=== PATIENT | male | born 1940 | race Two or more races ===

== ENCOUNTER 2019-12-07 12:05 | Inpatient (IN) | payer OTHER ==
[~2019-12-07] VITALS: Ht 185.4 cm; Wt 72.6 kg
[2019-12-07] MEDS ORDERED: ONDANSETRON HCL 4 MG/2 ML VIAL ONE (12:29)
[2019-12-07] MEDS ORDERED: MORPHINE SULFATE 4 MG/ML SYR/VIAL ONE (12:29)
[2019-12-07] MEDS ORDERED: cefTRIAXone 1GM/50ML D5W 50 ML IV ONE (12:30)
[2019-12-07] MEDS ORDERED: SODIUM CHLORIDE 0.9% 1,000 ML IV ONE ×3 (12:30→16:45)
[2019-12-07] MEDS ORDERED: MORPHINE SULFATE 4 MG/ML SYR/VIAL IV ONE (12:45)
[2019-12-07] MEDS ORDERED: ONDANSETRON HCL 4 MG/2 ML VIAL IV ONE (12:45)
[2019-12-07 13:27] LABS: Basophils # (auto) 0 10 ^3/uL (0-0.2); Basophils % (auto) 0.3 % (0.0-2.0); Eosinophils # (auto) 0 10 ^3/uL (0-0.8); Lymphocytes # (auto) 0.4 10 ^3/uL (0.4-5.4); Monocytes # (auto) 0.4 10 ^3/uL (0-1.3)
[2019-12-07 13:28] LABS: Hematocrit 35.4 % (41.0-53.0); Hemoglobin 12.3 g/dL (13.5-17.5); Lymphocytes % (auto) 4.1 % (10.0-50.0); Mean Corpuscular Hemoglobin 34.7 pg (28.0-32.0); Mean Corpuscular Hgb Conc. 34.6 g/dL (32.0-36.0); Mean Corpuscular Volume 100.4 fL (80.0-100.0); Monocytes % (auto) 4.7 % (0.0-12.0); Neutrophils # (auto) 8.7 10 ^3/uL (1.6-8.6); Neutrophils % (auto) 90.9 % (37.0-80.0); Platelet Count (auto) 289 10^3/uL (140-450); Red Blood Cells 3.53 10^6/uL (4.5-5.90); Red Cell Distribution Width 15.3 % (11.8-14.3); White Blood Cell 9.6 10^3/uL (4.4-10.8)
[2019-12-07 13:42] LABS: INR 1.15 (0.9-1.15); Partial Thromboplastin Time 32.6 sec (23.64-32.05)
[2019-12-07 13:45] LABS: Alanine Aminotransferase 23 U/L (16-61); Albumin 2.5 g/dL (3.4-5.0); Anion Gap 9 (5-15); Aspartate Aminotransferase 43 U/L (15-37); BUN/Creatinine Ratio 32.6; Blood Urea Nitrogen 42 mg/dL (7-18); Calcium 9.3 mg/dL (8.5-10.1); Carbon Dioxide 23 mmol/L (21-32); Chloride 111 mmol/L (98-107); GFR African American 70 mL/min; GFR Non-African American 58 mL/min; Glucose 110 mg/dL (74-106); Potassium 3.8 mmol/L (3.5-5.1); Sodium 143 mmol/L (136-145)
[2019-12-07 13:50] LABS: Alkaline Phosphatase 78 U/L (45-117); Bilirubin, Total 0.6 mg/dL (0.2-1.0); Total Protein 8.5 g/dL (6.4-8.2)
[2019-12-07] MEDS ORDERED: LIDOCAINE 2% JELLY 11ml (GLYDO) ONE (14:15)
[2019-12-07] MEDS ORDERED: LIDOCAINE 2% JELLY 11ml (GLYDO) UR ONE (15:00)
[2019-12-07] MEDS ORDERED: ACETAMINOPHEN 500 MG TAB PO PRN (16:45)
[2019-12-07] MEDS ORDERED: ONDANSETRON HCL 4 MG/2 ML VIAL IV PRN (16:45)
[2019-12-07] MEDS ORDERED: NITROGLYCERIN 0.4 MG SL TAB SL PRN (16:45)
[2019-12-07] MEDS ORDERED: MORPHINE SULF INJ 2 MG/ML SYRINGE 1ML IV PRN ×2 (16:45)
[2019-12-07] MEDS ORDERED: MEPERIDINE HCL (25 MG/ML) 1ML VIAL IV PRN (17:15)
[2019-12-07] MEDS: AZITHROMYCIN 500MG/ 250ML 250 ML IV SCH (17:23)
[2019-12-07] MEDS ORDERED: SODIUM CHLORIDE 0.9% 500 ML IV ONE (17:45)
[2019-12-07] MEDS ORDERED: ACETAMINOPHEN 650 MG RECT SUPP PR PRN (17:45)
[2019-12-07] MEDS ORDERED: NOREPINEPHRINE 8 MG/250ML KIT 250 ML IV SCH (20:43)
[2019-12-08] VITALS (16 sets, daily range): BP systolic 79–112; BP diastolic 52–76
[2019-12-08 05:24] LABS: Basophils # (auto) 0.2 10 ^3/uL (0-0.2); Basophils % (auto) 0.9 % (0.0-2.0); Eosinophils # (auto) 0 10 ^3/uL (0-0.8); Hematocrit 37.6 % (41.0-53.0); Hemoglobin 12.3 g/dL (13.5-17.5); Lymphocytes # (auto) 0.3 10 ^3/uL (0.4-5.4); Lymphocytes % (auto) 1.7 % (10.0-50.0); Mean Corpuscular Hemoglobin 32.5 pg (28.0-32.0); Mean Corpuscular Hgb Conc. 32.6 g/dL (32.0-36.0); Mean Corpuscular Volume 99.9 fL (80.0-100.0); Monocytes # (auto) 0.7 10 ^3/uL (0-1.3); Monocytes % (auto) 4.3 % (0.0-12.0); Neutrophils # (auto) 15.5 10 ^3/uL (1.6-8.6); Neutrophils % (auto) 93.1 % (37.0-80.0); Nucleated Red Blood Cells % 0.1 %; Platelet Count (auto) 314 10^3/uL (140-450); Red Blood Cells 3.77 10^6/uL (4.5-5.90); Red Cell Distribution Width 15.6 % (11.8-14.3); White Blood Cell 16.6 10^3/uL (4.4-10.8)
--- NOTE | 2019-12-08 05:30 | NUR ---
Admit to [facility] Ladmitted to [facility] via gurney on bowling floor desk clerk, and portable 02. Patient transfered to bed, connected to unit monitoring and oxygen, [facility]. Patient oriented to Quang Roldan, primary RN, unit, room, bed, and unit policies regarding patient care and visiting hours. All questions and concerns addressed, patient verbalized understanding.Bed locked for safety. Complete physical assessment under interventions. NOTE:
[2019-12-08 05:51] LABS: BUN/Creatinine Ratio 28.9; Calcium 8.8 mg/dL (8.5-10.1); Potassium 4.4 mmol/L (3.5-5.1)
--- NOTE | 2019-12-08 06:00 | NUR ---
Called ER- change admission order spoke with ER requesting to place [facility] order per charge nurse.
--- NOTE | 2019-12-08 07:15 | NUR ---
Endorsed care to day nurse
--- NOTE | 2019-12-08 08:00 | NUR ---
Opening Shift Note Assumed care of patient, patient sleeping, woke up by calling and touching, not follow direction, mumbling, stated that cold BT 97.5, blanket provided. No S/S of distress/SOB or pain noted. Will continue to monitor for changes Q1hr and PRN. Patient on Levophed at 7mcg/min.
--- NOTE | 2019-12-08 08:30 | NUR ---
Tried to retained leon's catheter, using No 14F, couldn't pass it through, patient restless, then stop trying.
--- NOTE | 2019-12-08 08:45 | NUR ---
Dressing changed at IV right hand.
[2019-12-08] MEDS ORDERED: cefTRIAXone 1GM/50ML D5W 50 ML IV SCH (09:00)
[2019-12-08] MEDS: AZITHROMYCIN 500MG/ 250ML 250 ML IV SCH (09:39)
[2019-12-08] MEDS ORDERED: PANTOPRAZOLE 40 MG/10 ML VIAL INJ IV SCH (10:00)
--- NOTE | 2019-12-08 10:00 | NUR ---
CXR at the bedside, received a call from wound care nurse. Patient coughing and lung sound more crackle at left lung, o2 saturation 92% with O2 NC 5 LPM, changed to simple mask at 10 LPM at this time. Will continue to monitor and care.
--- NOTE | 2019-12-08 10:56 | NUR ---
Called and left the message to Dr. Daysi Bennett regarding patient more SOB RR 40-45/min, O2 saturation 92% with O2 NC 5 LPM, needed to prince to simple mask, O2 saturation 94%, still restless, not follow direction, informed MD that cannot insert leon's catheter as well. Waiting MD to call back.
--- NOTE | 2019-12-08 11:06 | NUR ---
RT at the bedside, changing to Oxymizer, called and left the message, possible patient might need intubation and also families at the lobby mentioned that doctor okay for them to come up. Waiting MD to call back.
--- NOTE | 2019-12-08 11:17 | NUR ---
Received a call from his (MAYANK), Wendi fierro for families to see patient and for code status.
--- NOTE | 2019-12-08 11:30 | NUR ---
Received a call back from Dr. Bennett, informed information and MD made aware about lab and patient's condition, MD spoke to his on the phone.
--- NOTE | 2019-12-08 11:35 | NUR ---
His signed DNR (comfort measure only)
--- NOTE | 2019-12-08 11:45 | NUR ---
Asystole, Dr. Bennett made aware. His and sons at the bedside.
--- NOTE | 2019-12-08 12:00 | NUR ---
Laquita () took patient's ring back, no other belonging noted.
--- NOTE | 2019-12-08 12:20 | NUR ---
Onel ASIF at the bedside for pronounce .
--- NOTE | 2019-12-08 12:39 | NUR ---
Called for Metallurgical Inspector at [phone]. Provided information, waiting a call back.
--- NOTE | 2019-12-08 12:48 | NUR ---
Called and spoke to Florentin from [employer] ([phone]), , patient is not candidate.
--- NOTE | 2019-12-08 14:47 | NUR ---
Received a call from Gia from [employer], will called [employer] for case number and body can be released by founder president and ceo (per Gia Farias), CN (Ramila) made aware and body can transfer to [facility].
--- NOTE | 2019-12-08 15:28 | NUR ---
Arik was taken to [facility]. Called [facility] at [phone]. Addendum: 12/08/19 at 1537 by YURY FONG RN RN Body
--- NOTE | 2019-12-08 15:37 | NUR ---
Director Manufacturing Engineering's case number [id number].
--- NOTE | 2019-12-08 19:47 | NUR ---
RICO EVANS FROM [employer] CALLED AND GAVE ME A CASE # [id number] AND IS A [employer] CASE, SERVER PROGRAMMER DEEPAK AGUAYO RN WAS NOTIFIED.
== END 2019-12-08 11:45 | disposition expired | DRG 535 ==
LOC: EDBD 12:05 → ER 12:05 → TELE 12:06 → DOU IN ICU 12-08 05:30
PROVIDERS: ADMIT Nurse Practitioner Acute Care; ATTEND Internal Medicine
DX: S72.012A Unspecified intracapsular fracture of left femur, initial encounter for closed fracture (principal); J96.01 Acute respiratory failure with hypoxia; J18.9 Pneumonia, unspecified organism; E44.0 Moderate protein-calorie malnutrition; C34.91 Malignant neoplasm of unspecified part of right bronchus or lung; E87.0 Hyperosmolality and hypernatremia; N17.9 Acute kidney failure, unspecified; J44.0 Chronic obstructive pulmonary disease with (acute) lower respiratory infection; F03.90 Unspecified dementia, unspecified severity, without behavioral disturbance, psychotic disturbance, mood disturbance, and anxiety; N18.3 Chronic kidney disease, stage 3 (moderate); D53.9 Nutritional anemia, unspecified; W18.30XA Fall on same level, unspecified, initial encounter; I46.9 Cardiac arrest, cause unspecified; Z66 Do not resuscitate; W18.39XA Other fall on same level, initial encounter; Z85.118 Personal history of other malignant neoplasm of bronchus and lung; Y93.89 Activity, other specified; Y92.89 Other specified places as the place of occurrence of the external cause; Y99.8 Other external cause status; Z79.899 Other long term (current) drug therapy; Z68.21 Body mass index [BMI] 21.0-21.9, adult; Z88.5 Allergy status to narcotic agent; Z88.8 Allergy status to other drugs, medicaments and biological substances; Z88.6 Allergy status to analgesic agent
CPT/HCPCS: 36415; 36416; 36600; 71045; 72170; 80048; 80053; 82805; 82962; 83605; 83880; 84484; 85025; 85610; 85730; 87040; 87070; 87081; 87804; 87880; 93005; 96361; 96365; 96375; C9113; G0378; J0696; J2405